=== PATIENT | female | born 1945 | race Caucasian/White ===

== ENCOUNTER 2025-06-28 13:07 | Emergency (ER) | payer OTHER ==
[2025-06-28 14:25] LABS: BASO # 0.1 10*3/uL (0.0-0.1); BASO % 0.8 % (0.0-1.0); EOS # 0.0 10*3/uL (0.0-0.4); EOS % 0.0 % (1.0-4.0); MEAN CELL VOLUME 102.0 fl (81.0-99.0); MEAN CORPUSCULAR HGB 33.6 pg (27.0-31.0); MEAN PLATELET VOLUME 9.2 fl (9.6-12.3); MONO # 0.8 10*3/uL (0.1-1.0); MONO % 8.7 % (3.0-9.0); NEUT # 5.2 10*3/uL (2.3-7.9); NEUT % 60.5 % (47.0-73.0); NUCLEATED RED BLOOD CELL 0.0 % (0.0-0.0); NUCLEATED RED BLOOD CELL 0.0 10*3/uL (0.0-0.0); PLATELET COUNT AUTOMATED 207 10*3/uL (130-400); RED CELL DISTRI WIDTH 14.1 % (0-14.5)
[2025-06-28 14:36] LABS: ACT PARTIAL THROMBO TIME 26.4 SECONDS (20.0-32.1)
[2025-06-28 14:50] LABS: BUN 32 mg/dl (9-23); SGPT/ALT 14 U/L (5-49)
== END 2025-06-28 15:17 | disposition home or self-care (01) ==
LOC: ED 13:07 → EDSEX 13:12 → ED 15:17
PROVIDERS: Nurse Practitioner Family
DX: R04.0 Epistaxis (principal); Z88.0 Allergy status to penicillin; Z88.6 Allergy status to analgesic agent; Z88.8 Allergy status to other drugs, medicaments and biological substances; Z91.013 Allergy to seafood